=== PATIENT | male | born 1955 | race Caucasian/White ===

== ENCOUNTER 2018-05-14 10:34 | Emergency (ER) | payer MEDICARE, OTHER ==
[~2018-05-14] VITALS: Ht 165.1 cm; Wt 69.8 kg
[~2018-05-14 10:34] MED LIST: ALBU.083IS; ALBU3IS INH; ALBU90OI61 INH; AMLO10 PO; ASPI325; ASPI325EC; ASPI81CH PO; ATEN25; ATEN25 PO; ATOR40TA PO; BICA50 PO; CLOP75; CLOP75 PO; DICL75ER; DICL75ER PO; DIPH50 PO; DOXY100 PO; DULO60 PO; FELO5CR; FLUN25SP; FURO40 PO; GABA300 PO; LIDOPATCH1 EACH TOP; LISI20 PO; LORA10ER; LORA10ER PO; METF500C PO; METH5; METO25ER PO; MORP15ER PO; NITR.4SL; OXYACE5T; OXYACE5T PO; OXYC5 PO; PANT40 PO; PENVK500 PO; POTA8 PO; PREG100 PO; PROACE100 PO; RABE20; SIMV40; SIMV40 PO; SIMVASTATIN; TERA2; TERA5 PO; TERAZOSIN; TIOT18 INH
[2018-05-14] MEDS ORDERED: OXYC10TA19 (12:12)
[2018-05-14 12:53] LABS: PCO2 Arterial 44.2 mmHg (35-45); PO2 Arterial 79.9 mmHg (80-100)
[2018-05-14 12:55] LABS: BASOPHILS ABSOLUTE AUTO 0.05 K/mm3 (0.00-0.23); BASOPHILS PERCENT AUTO 1 % (0-2); EOSINOPHILS ABSOLUTE AUTO 0.22 K/mm3 (0.00-0.68); EOSINOPHILS PERCENT AUTO 2 % (0-6); Hematocrit 36.6 % (37.0-53.0); Hemoglobin 11.5 g/dL (13.5-17.5); IMMATURE GRAN ABSOLUTE AUTO 0.05 K/mm3 (0.00-0.10); IMMATURE GRAN PERCENT AUTO 1 % (0-1); LYMPHOCYTES ABSOLUTE AUTO 0.51 K/mm3 (0.84-5.20); LYMPHOCYTES PERCENT AUTO 5 % (21-46); MONOCYTES ABSOLUTE AUTO 0.54 K/mm3 (0.16-1.47); MONOCYTES PERCENT AUTO 5 % (4-13); Mean Corpuscular HGB 32.4 pg (26.0-34.0); Mean Corpuscular HGB Conc 31.4 g/dL (31.5-36.5); Mean Corpuscular Volume 103 fL (80-100); NEUTROPHILS ABSOLUTE AUTO 9.22 K/mm3 (1.96-9.15); NEUTROPHILS PERCENT AUTO 87 % (41-73); Platelet Count 461 K/mm3 (150-400); RDW Coefficient Variation 20.3 % (11.7-14.2); RDW Standard Deviation 76.7 fL (35.1-46.3); Red Blood Cell Count 3.55 M/mm3 (4.30-5.90); White Blood Cell Count 10.59 K/mm3 (4.00-11.30)
[2018-05-14 13:23] LABS: Alanine Aminotransfer (ALT/SGP 15 U/L (12-78); Albumin, Blood 3.2 g/dL (3.4-5.0); Albumin/Globulin Ratio 0.8 (0.8-1.8); Alk Phos 102 U/L (50-136); Anion Gap 6 mmol/L (6-16); Aspartate Aminotrans (AST/SGOT 14 U/L (12-37); Bilirubin, Total 0.3 mg/dL (0.1-1.0); Blood Urea Nitrogen 10 mg/dL (8-24); Bun/Creatinine Ratio 18.7 (12.0-20.0); CO2, Blood 27 mmol/L (21-32); Calcium, Blood 8.4 mg/dL (8.5-10.1); Chloride, Blood 105 mmol/L (98-108); Creatinine, Blood 0.54 mg/dL (0.60-1.20); Globulin, Blood 4.2 g/dL (2.2-4.0); Glomerular Filtration Rate >60 (60-); Glucose, Blood 131 mg/dL (70-99); Potassium, Blood 4.2 mmol/L (3.5-5.5); Sodium, Blood 138 mmol/L (136-145); Total Protein, Blood 7.4 g/dL (6.4-8.2)
[2018-05-14] MEDS ORDERED: Zithromax250 MG PO (14:24)
[2018-05-14] MEDS ORDERED: METPRE4DP PO (14:24)
[2018-05-14] MEDS ORDERED: MAGOXI400 PO (14:24)
== END 2018-05-14 14:30 | disposition home or self-care (01) ==
LOC: ER 10:34
PROVIDERS: Emergency Medicine
DX: J44.1 Chronic obstructive pulmonary disease with (acute) exacerbation (principal); J44.0 Chronic obstructive pulmonary disease with (acute) lower respiratory infection; J20.9 Acute bronchitis, unspecified; I25.10 Atherosclerotic heart disease of native coronary artery without angina pectoris; I25.2 Old myocardial infarction; F17.210 Nicotine dependence, cigarettes, uncomplicated; Z88.8 Allergy status to other drugs, medicaments and biological substances; Z88.1 Allergy status to other antibiotic agents; Z79.899 Other long term (current) drug therapy; Z79.01 Long term (current) use of anticoagulants; Z79.82 Long term (current) use of aspirin; Z79.51 Long term (current) use of inhaled steroids; Z79.84 Long term (current) use of oral hypoglycemic drugs
CPT/HCPCS: 36415; 36600; 71046; 80053; 82803; 83605; 85025; 94640; 94644; 99285-25; J2930; J3475; J7030

== ENCOUNTER 2018-10-17 18:07 | Inpatient (IN) | payer MEDICARE, OTHER ==
[~2018-10-17] VITALS: Ht 165.1 cm; Wt 178.0 kg
[~2018-10-17 18:07] MED LIST changes: +ALBU90OI INH; +DULERA 100 MCG/13 GM INH; +LISI5 PO; +MAGOXI400 PO; +METPRE4DP PO; +OXYC10TA19; +OXYC10TA19 PO; +PRED20 PO; +Prednisone20 MG PO; +TORSE20 PO; +Zithromax250 MG PO; +[UNRECOGNIZED DRUG - OTHER]
[2018-10-17 19:22] LABS: BASOPHILS ABSOLUTE AUTO 0.05 K/mm3 (0.00-0.23); BASOPHILS PERCENT AUTO 1 % (0-2); EOSINOPHILS ABSOLUTE AUTO 0.11 K/mm3 (0.00-0.68); EOSINOPHILS PERCENT AUTO 1 % (0-6); Hematocrit 42.9 % (37.0-53.0); Hemoglobin 13.5 g/dL (13.5-17.5); IMMATURE GRAN PERCENT AUTO 1 % (0-1); LYMPHOCYTES ABSOLUTE AUTO 0.88 K/mm3 (0.84-5.20); LYMPHOCYTES PERCENT AUTO 8 % (21-46); MONOCYTES ABSOLUTE AUTO 0.86 K/mm3 (0.16-1.47); MONOCYTES PERCENT AUTO 8 % (4-13); Mean Corpuscular HGB 30.5 pg (26.0-34.0); Mean Corpuscular HGB Conc 31.5 g/dL (31.5-36.5); Mean Corpuscular Volume 97 fL (80-100); NEUTROPHILS ABSOLUTE AUTO 8.64 K/mm3 (1.96-9.15); NEUTROPHILS PERCENT AUTO 81 % (41-73); NRBC Auto 0.9 /100 WBC (0.0-0.2); RDW Standard Deviation 77.7 fL (35.1-46.3); Red Blood Cell Count 4.42 M/mm3 (4.30-5.90); White Blood Cell Count 10.64 K/mm3 (4.00-11.30)
[2018-10-17 19:37] LABS: Alanine Aminotransfer (ALT/SGP 43 U/L (12-78); Albumin, Blood 2.5 g/dL (3.4-5.0); Albumin/Globulin Ratio 0.7 (0.8-1.8); Alk Phos 316 U/L (50-136); Anion Gap 6 mmol/L (6-16); Aspartate Aminotrans (AST/SGOT 167 U/L (12-37); Blood Urea Nitrogen 26 mg/dL (8-24); Bun/Creatinine Ratio 29.8 (12.0-20.0); CO2, Blood 26 mmol/L (21-32); Calcium, Blood 6.9 mg/dL (8.5-10.1); Chloride, Blood 100 mmol/L (98-108); Creatinine, Blood 0.87 mg/dL (0.60-1.20); Globulin, Blood 3.6 g/dL (2.2-4.0); Glomerular Filtration Rate >60 (60-); Glucose, Blood 105 mg/dL (70-99); Potassium, Blood 5.1 mmol/L (3.5-5.5); Sodium, Blood 132 mmol/L (136-145); Total Protein, Blood 6.1 g/dL (6.4-8.2)
[2018-10-17 19:54] LABS: Platelet Count 31 K/mm3 (150-400)
[2018-10-17 20:44] LABS: International Normalized Ratio 1.47
[2018-10-18 04:38] LABS: BASOPHILS ABSOLUTE AUTO 0.03 K/mm3 (0.00-0.23); BASOPHILS PERCENT AUTO 0 % (0-2); EOSINOPHILS ABSOLUTE AUTO 0.06 K/mm3 (0.00-0.68); EOSINOPHILS PERCENT AUTO 1 % (0-6); Hematocrit 37.7 % (37.0-53.0); IMMATURE GRAN PERCENT AUTO 1 % (0-1); LYMPHOCYTES ABSOLUTE AUTO 0.89 K/mm3 (0.84-5.20); LYMPHOCYTES PERCENT AUTO 9 % (21-46); MONOCYTES ABSOLUTE AUTO 0.83 K/mm3 (0.16-1.47); MONOCYTES PERCENT AUTO 9 % (4-13); Mean Corpuscular HGB 30.8 pg (26.0-34.0); Mean Corpuscular HGB Conc 31.8 g/dL (31.5-36.5); Mean Corpuscular Volume 97 fL (80-100); NEUTROPHILS PERCENT AUTO 80 % (41-73); NRBC ABSOLUTE 0.06 K/mm3 (0.00-0.02); NRBC Auto 0.6 /100 WBC (0.0-0.2); RDW Coefficient Variation 21.6 % (11.7-14.2); RDW Standard Deviation 75.7 fL (35.1-46.3); Red Blood Cell Count 3.89 M/mm3 (4.30-5.90); White Blood Cell Count 9.61 K/mm3 (4.00-11.30)
[2018-10-18 04:55] LABS: Magnesium, Blood 2.5 mg/dL (1.6-2.4)
[2018-10-18 05:03] LABS: Platelet Count 28 K/mm3 (150-400)
[2018-10-18 05:12] LABS: Anion Gap 7 mmol/L (6-16); Blood Urea Nitrogen 26 mg/dL (8-24); Bun/Creatinine Ratio 29.4 (12.0-20.0); CO2, Blood 24 mmol/L (21-32); Calcium, Blood 6.3 mg/dL (8.5-10.1); Chloride, Blood 102 mmol/L (98-108); Creatinine, Blood 0.88 mg/dL (0.60-1.20); Glomerular Filtration Rate >60 (60-); Glucose, Blood 117 mg/dL (70-99); Potassium, Blood 5.2 mmol/L (3.5-5.5); Sodium, Blood 133 mmol/L (136-145)
--- NOTE | 2018-10-18 05:55 | NUR ---
SHIFT SUMMARY PT WAS A NEW ADMIT DURING THE NIGHT, ARRIVING ON THE FLOOR AT 0112. HE WAS ADMITTED FOR ACUTE CHF AFTER REPORTING BLE SWELLING, INCREASING WEAKNESS AND SOB AT HOME. THE PT IS NOTICEABLY DYSPNEIC WITH ANY MOVEMENT OR EXERTION, AND WAS GIVEN A BREATHING TREATMENT DURING THE NIGHT BY RT. HE IS SATTING IN THE MID 90S ON 2L OF O2. HE ALSO RAN TACHY IN THE 110S THROUGH THE NIGHT. ALL OTHER VITALS STABLE. PT REPORTED PAIN IN HIS LEGS AND ABDOMEN AFTER RECEIVING OXYCONTIN IN THE ER. THE HOSPITALST DR MARMOLEJO WAS CONSULTED, AND OXYCONTIN AND OXYCODONE ORDERED, BUT THE PT FELL ASLEEP BEFORE MEDS COULD BE GIVEN. PT'S LEGS ARE SWOLLEN 3+ PITTING EDEMA WITH SOME AREAS OF WEEPING ON HIS SHINS. NO OTHER ACUTE CHANGES IN PT CONDITION NOTED SINCE ADMISSION. WILL CONTINUE TO MONITOR AND TREAT PER EMAR.
--- NOTE | 2018-10-18 16:52 | NUR ---
SHIFT SUMMARY- PT C/O PAIN IN HIS BACK/ABD/PELVIS. MEDS GIVEN PER EMAR. PT DENIES SOB. RESP E/U ON RA. LUNGS COARSE/WHEEZING T/O. PT DENIES N/V. 3+ WEEPING EDEMA BLE. SINUS TACH WITH BBB AT 119 PER PCU MANAGER OF CUSTOMER BILLING. BEDREST AT THIS TIME. TURNS Q2H. NO OTHER SIGNIFICANT CHANGES THIS SHIFT.
--- NOTE | 2018-10-18 17:49 | NUR ---
NOTIFIED DR. AZUL PT REQUEST TO BE DNR. DR. AZUL SAID TO PUT IN DNR CODE STATUS ORDER. NO OTHER NEW ORDERS AT THIS TIME.
--- NOTE | 2018-10-18 18:28 | NUR ---
DNR CONFIRMED WITH REMINGTON SHAIKH RN, DNR BRACELET ON LEFT WRIST.
[2018-10-19 05:26] LABS: BASOPHILS ABSOLUTE AUTO 0.05 K/mm3 (0.00-0.23); BASOPHILS PERCENT AUTO 1 % (0-2); EOSINOPHILS ABSOLUTE AUTO 0.08 K/mm3 (0.00-0.68); EOSINOPHILS PERCENT AUTO 1 % (0-6); Hematocrit 37.9 % (37.0-53.0); Hemoglobin 12.1 g/dL (13.5-17.5); IMMATURE GRAN ABSOLUTE AUTO 0.08 K/mm3 (0.00-0.10); IMMATURE GRAN PERCENT AUTO 1 % (0-1); LYMPHOCYTES ABSOLUTE AUTO 0.93 K/mm3 (0.84-5.20); LYMPHOCYTES PERCENT AUTO 10 % (21-46); MONOCYTES ABSOLUTE AUTO 0.91 K/mm3 (0.16-1.47); MONOCYTES PERCENT AUTO 10 % (4-13); Mean Corpuscular HGB 30.8 pg (26.0-34.0); Mean Corpuscular HGB Conc 31.9 g/dL (31.5-36.5); Mean Corpuscular Volume 96 fL (80-100); NEUTROPHILS ABSOLUTE AUTO 6.85 K/mm3 (1.96-9.15); NEUTROPHILS PERCENT AUTO 77 % (41-73); NRBC ABSOLUTE 0.05 K/mm3 (0.00-0.02); NRBC Auto 0.6 /100 WBC (0.0-0.2); RDW Coefficient Variation 21.5 % (11.7-14.2); RDW Standard Deviation 75.2 fL (35.1-46.3); Red Blood Cell Count 3.93 M/mm3 (4.30-5.90)
--- NOTE | 2018-10-19 05:35 | NUR ---
NOC SHIFT SUMMARY PT HAS BEEN PLEASANT AND COOPERATIVE WITH CARE. UPON SHIFT CHANGE PT WAS FOUND TO HAVE NEW ONSET SWELLING IN PENIS AND SCROTUM. DAY NURSE AND PT BOTH SAY IT WAS NEW ONSET AND OCCURRED ONLY IN THE PAST FEW MINUTES BEFORE SHIFT CHANGE. PT STILL ABLE TO VOID AND DENIES PAIN. CALLED TO DR MARMOLEJO [phone], HE WOULD LIKE THIS TO BE REPORTED TO THE DAY NURSE. AT 0155 THIS MORDNING PT COMPLAINED OF PAIN IN CHEST DULL 6/10. VITALS WERE TAKEN AND CHARGE NURSE CONSULTED. WHILE FENCE RIDER AND I WHERE TALKING WITH PT HE RELATED THAT PAIN HAD BEGUN TO IMPROVE. RECHECKED VITALS 0301 WHICH WERE IMPROVED WELL. PT STATED AT THAT TIME PAIN WAS MUCH IMPROVED. NO LONGER HAVING ANY PAIN OR DISCOMFORT. PT AAOX4 RESP EVEN AND UNLABORED. APPEARS IN NO ACUTE DISTRESS. WILL CONTINUE TO MONITOR.
[2018-10-19 05:53] LABS: Anion Gap 6 mmol/L (6-16); Blood Urea Nitrogen 28 mg/dL (8-24); CO2, Blood 24 mmol/L (21-32); Calcium, Blood 6.3 mg/dL (8.5-10.1); Chloride, Blood 103 mmol/L (98-108); Creatinine, Blood 0.85 mg/dL (0.60-1.20); Glomerular Filtration Rate >60 (60-); Glucose, Blood 112 mg/dL (70-99); Potassium, Blood 4.8 mmol/L (3.5-5.5); Sodium, Blood 133 mmol/L (136-145)
[2018-10-19 06:33] LABS: Platelet Count 26 K/mm3 (150-400)
--- NOTE | 2018-10-19 11:07 | NUR ---
pt out of room checked back. left AD information. will retrun and attemtp polst and AD.
--- NOTE | 2018-10-19 17:24 | NUR ---
Met with patient this morning after he returned. Pt relayed his stressors and needs for his care. He states he is owrking with his oncologist on a plan but he states his doctor has suggested palliative treaments. He may be able to have a palliative treatment based on a study his doctor is looking at. pt states his PSA is expremly high and he is not optimistic. Review of his symptoms he is well controlled. His biggest issue is mobility. He is planning on having a hospital bed in the living room and using his motorized chair. His greatest stress is fainancial and what his passing will do to his . We reviewed levels of care and He brought up hospice. Review with patient what they offer and can do for him and his . advised that if he seeks palliative treatment he can still do have that option but it may not be covered under the hospice bundle. Review of supportive financial care for his . pt does not have a will or a power of regulatory attorney. gave him a copy and offered [place]. He is very interested in hospice transition and his is coming to visit today. Gave hims some pointers on speaking with his on a plan. He is a non service connected who [facility]. He has a funneral benefit. He states he recently had a life celebration and may have another one it was so much fun! Gave him information on creamation and cost and supportive strategies for his wifes financial needs.
--- NOTE | 2018-10-19 19:05 | NUR ---
SHIFT SUMMARY PATIENT PLEASANT. REPORTS SOME MILD STOMACH UPSET. PARVEEN DOMINGUEZ CONCERNS FRM PATIENT. WILL ASSESS FOR CHANGES.
--- NOTE | 2018-10-19 23:08 | NUR ---
PT WAS COMPLAINING OF SOME STOMACH PAIN AT TIME OF SHIFT ASSESMENT. HE HAD RELATED THAT IT STARTED AFTER HE ATE AT AROUND [address] JANSEN AT [phone] AND VERBAL ORDER OMEPRAZOLE AND MAALOX. AFTER TAKING PT STATES PAIN/DISCOMFORT HAS RESOLVED. PT STATES FEELING MUCH BETTER. WILL CONTINUE TO MONITOR.
[2018-10-20 05:09] LABS: BASOPHILS ABSOLUTE AUTO 0.05 K/mm3 (0.00-0.23); BASOPHILS PERCENT AUTO 1 % (0-2); EOSINOPHILS ABSOLUTE AUTO 0.12 K/mm3 (0.00-0.68); EOSINOPHILS PERCENT AUTO 1 % (0-6); Hematocrit 38.3 % (37.0-53.0); Hemoglobin 12.1 g/dL (13.5-17.5); IMMATURE GRAN ABSOLUTE AUTO 0.06 K/mm3 (0.00-0.10); IMMATURE GRAN PERCENT AUTO 1 % (0-1); LYMPHOCYTES PERCENT AUTO 13 % (21-46); MONOCYTES ABSOLUTE AUTO 0.85 K/mm3 (0.16-1.47); MONOCYTES PERCENT AUTO 10 % (4-13); Mean Corpuscular HGB 30.4 pg (26.0-34.0); Mean Corpuscular HGB Conc 31.6 g/dL (31.5-36.5); Mean Corpuscular Volume 96 fL (80-100); NEUTROPHILS ABSOLUTE AUTO 6.44 K/mm3 (1.96-9.15); NEUTROPHILS PERCENT AUTO 75 % (41-73); NRBC ABSOLUTE 0.05 K/mm3 (0.00-0.02); NRBC Auto 0.6 /100 WBC (0.0-0.2); RDW Coefficient Variation 21.5 % (11.7-14.2); RDW Standard Deviation 75.2 fL (35.1-46.3); Red Blood Cell Count 3.98 M/mm3 (4.30-5.90); White Blood Cell Count 8.62 K/mm3 (4.00-11.30)
[2018-10-20 05:20] LABS: Platelet Count 25 K/mm3 (150-400)
[2018-10-20 05:27] LABS: Anion Gap 7 mmol/L (6-16); Blood Urea Nitrogen 29 mg/dL (8-24); Bun/Creatinine Ratio 34.6 (12.0-20.0); CO2, Blood 24 mmol/L (21-32); Calcium, Blood 6.3 mg/dL (8.5-10.1); Chloride, Blood 103 mmol/L (98-108); Creatinine, Blood 0.84 mg/dL (0.60-1.20); Glomerular Filtration Rate >60 (60-); Glucose, Blood 111 mg/dL (70-99); Potassium, Blood 5.1 mmol/L (3.5-5.5); Sodium, Blood 134 mmol/L (136-145)
--- NOTE | 2018-10-20 06:02 | NUR ---
NOC SHIFT SUMMARY PT PLEASANT AND COOPERATIVE WITH CARE THIS NIGHT. HE HAD SOME EPIGASTRIC DISCOMFORT EARLY IN THE EVENING. OBTAINED ORDER FOR OMEPRAZOLE AND MAALOX. AFTER TAKING PT STATES DISCOMFORT RESOLVED. TREATED HIP PAIN WITH OPIATES THROUGH THE NIGHT TO GOOD EFFECT. PT STATES HE SLEPT BETTER THIS NIGHT THAN IN "A LONG TIME". CURRENTLY SLEEPING. RESP ARE EVEN AND UNLABORED. APPEARS IN NO ACUTE DISTRESS. RECIEVED CALL FROM LAB FOR LOW PLATELETS AT 25. DISCUSSED WITH ACQUISITIONS ASSISTANT. ATTENDING PHYCICIAN IS AWARE OF LOW PLATELETS AND TREND. WILL REPORT TO ONCOMING NURSE.
--- NOTE | 2018-10-20 14:04 | NUR ---
PLAN TO GO HOME WITH HOSPICE FOLLOWING TOMORROW. PAIN WELL MANAGED. NON-AMBULATORY. USES W/C INDEPENDENTLY BUT FULL/MAX ASSIST TO TRANSFER. IN GOOD SPIRITS AND STATES, "I AM READY TO GO" PLEASANT/COOP WITH ALL CARE.
--- NOTE | 2018-10-20 17:14 | NUR ---
Attempted to visit pt twice today to provide blank forms requested/discussed w/previous palliative care RN, the durable power of business attorney and [place] will. Pt was out of his room both times. Staff report he and his are outside for a smoke. We will try again tomorrow and continue advanced care planning conversation started yesterday.
--- NOTE | 2018-10-20 17:27 | NUR ---
NO ACUTE CHANGES T/O DAY. HAS HAD VISITORS AND IN PLEASANT SPIRITS. DENIES PAIN AT THIS TIME.
[2018-10-21 05:26] LABS: BASOPHILS ABSOLUTE AUTO 0.04 K/mm3 (0.00-0.23); BASOPHILS PERCENT AUTO 0 % (0-2); EOSINOPHILS PERCENT AUTO 1 % (0-6); Hematocrit 39.2 % (37.0-53.0); Hemoglobin 12.6 g/dL (13.5-17.5); IMMATURE GRAN ABSOLUTE AUTO 0.09 K/mm3 (0.00-0.10); IMMATURE GRAN PERCENT AUTO 1 % (0-1); LYMPHOCYTES PERCENT AUTO 9 % (21-46); MONOCYTES ABSOLUTE AUTO 0.85 K/mm3 (0.16-1.47); MONOCYTES PERCENT AUTO 8 % (4-13); Mean Corpuscular HGB 31.2 pg (26.0-34.0); Mean Corpuscular HGB Conc 32.1 g/dL (31.5-36.5); Mean Corpuscular Volume 97 fL (80-100); NEUTROPHILS ABSOLUTE AUTO 8.46 K/mm3 (1.96-9.15); NEUTROPHILS PERCENT AUTO 81 % (41-73); NRBC ABSOLUTE 0.08 K/mm3 (0.00-0.02); NRBC Auto 0.8 /100 WBC (0.0-0.2); RDW Coefficient Variation 21.6 % (11.7-14.2); RDW Standard Deviation 76.4 fL (35.1-46.3); Red Blood Cell Count 4.04 M/mm3 (4.30-5.90); White Blood Cell Count 10.44 K/mm3 (4.00-11.30)
[2018-10-21 05:42] LABS: Platelet Count 26 K/mm3 (150-400)
[2018-10-21 05:52] LABS: Anion Gap 6 mmol/L (6-16); Blood Urea Nitrogen 30 mg/dL (8-24); Bun/Creatinine Ratio 31.3 (12.0-20.0); CO2, Blood 25 mmol/L (21-32); Calcium, Blood 6.4 mg/dL (8.5-10.1); Chloride, Blood 100 mmol/L (98-108); Creatinine, Blood 0.96 mg/dL (0.60-1.20); Glomerular Filtration Rate >60 (60-); Glucose, Blood 140 mg/dL (70-99); Potassium, Blood 5.8 mmol/L (3.5-5.5); Sodium, Blood 131 mmol/L (136-145)
[2018-10-21] MEDS ORDERED: ALBU2.5V5 INH (15:19)
--- NOTE | 2018-10-21 15:23 | NUR ---
DISCHARGE MEDICATION RECONCILIATION: PER DR. AZUL TELEPHONE ORDER CONTINUE FOLLOWING HOME MEDS- 1) ALBUTEROL 90 MCG INH 1-2 ACT INH Q6H PRN SOB 2) ASPIRIN CHEWABLE 81 MG PO DAILY 3) ATENOLOL 25 MG PO DAILY 4) DULERA 100 MCG/5 MCG 2 ACT INH BID STOP THE FOLLOWING HOME MEDS- 1) ATORVASTATIN 40 MG PO DAILY 2) LISINOPRIL 5 MG PO DAILY 3) METFORMIN 1,000 MG PO BID 4) OXYCODONE 20 MG PO Q4H PRN SEVERE PAIN 5) PREDNISONE 20 MG PO DAILY 6) TORSEMIDE 20 MG PO DAILY
[2018-10-21] MEDS ORDERED: Lasix20 MG PO (15:28)
[2018-10-21] MEDS ORDERED: HYDPAM25 PO (15:29)
[2018-10-21] MEDS ORDERED: OMEPRAZOLE MAGN20 MG PO (15:30)
[2018-10-21] MEDS ORDERED: OXYC30ER PO (15:30)
[2018-10-21] MEDS ORDERED: OXYC5 PO (15:31)
[2018-10-21] MEDS ORDERED: GAVILAX17 GM PO (15:32)
--- NOTE | 2018-10-21 17:23 | NUR ---
PT DISCHARGED AROUND 1625 WITH INSRUCTIONS AND HARD COPIES FOR OXYCODONE AND OXYCONTIN. NO IV. TOLERATING FOOD AND FLUIDS, UP IN W/C ALL DAY OUTSIDE TO SMOKE. PAIN CONTROLLED WITH OXYCONTIN GIVEN THIS AM. SENT WITH ALL BELONGINGS AND PT'S OWN ELECTRIC WHEEL CHAIR. FAMILY TO DRIVE PT HOME.
== END 2018-10-21 15:54 | disposition hospice, home (50) | DRG 292 ==
LOC: ER 18:07 → MEDS 22:58 → ER 10-18 00:48 → MEDS 10-18 00:48 → ENPENDDIS 10-21 12:44 → MEDS 10-21 15:54
PROVIDERS: Emergency Medicine; Hospitalist; Physician Assistant; ADMIT Hospitalist
DX: I50.23 Acute on chronic systolic (congestive) heart failure (principal); J44.1 Chronic obstructive pulmonary disease with (acute) exacerbation; C61 Malignant neoplasm of prostate; E11.9 Type 2 diabetes mellitus without complications; D69.6 Thrombocytopenia, unspecified; I25.10 Atherosclerotic heart disease of native coronary artery without angina pectoris; Z51.5 Encounter for palliative care; F17.210 Nicotine dependence, cigarettes, uncomplicated; E78.5 Hyperlipidemia, unspecified; Z95.1 Presence of aortocoronary bypass graft; Z99.81 Dependence on supplemental oxygen; Z88.8 Allergy status to other drugs, medicaments and biological substances; Z79.84 Long term (current) use of oral hypoglycemic drugs; Z79.82 Long term (current) use of aspirin; Z79.899 Other long term (current) drug therapy; I25.2 Old myocardial infarction
CPT/HCPCS: 36415; 51702; 70450; 71046; 80048; 80053; 83735; 83880; 84484; 85025; 85055; 85610; 85730; 93005; 93010; 94640; 94760; 96374-59; 99285-25; J1940; Q0177

== ENCOUNTER 2018-10-24 04:08 | Emergency (ER) | payer MEDICARE, OTHER ==
[~2018-10-24] VITALS: Ht 162.6 cm; Wt 86.2 kg
[~2018-10-24 04:08] MED LIST changes: +ALBU2.5V5 INH; +GAVILAX17 GM PO; +HYDPAM25 PO; +Lasix20 MG PO; +OMEPRAZOLE MAGN20 MG PO; +OXYC30ER PO
--- NOTE | 2018-10-24 13:17 | NUR ---
Initial Visit: Palliative Care Consult for symptom managment. Spoke with Pt's nurse Toni and he reports the Pt is on hospice and came into ED for symptom management. Pt is scheduled for transport to [facility] at any moment. Pt is A&Ox4 and reports 10/10 pain and 4/7 dyspnea. Pt's respirations are 24/min and labored. He also reports 4/7 anxiety. Pt reports he is of [employer] jatinder. Pt's transport has arrived shortly into visit. Spoke with Dr Wilks requesting Pt receive Ativan for anxiety and dyspnea. Dr Wilks is agreeable and will place the order. No other concerns reported at this time.
== END 2018-10-24 15:05 | disposition home or self-care (01) ==
LOC: ER 04:08
DX: R06.2 Wheezing (principal); Z51.5 Encounter for palliative care; Z88.1 Allergy status to other antibiotic agents; Z88.8 Allergy status to other drugs, medicaments and biological substances; Z79.899 Other long term (current) drug therapy; Z79.82 Long term (current) use of aspirin; I25.2 Old myocardial infarction; F17.210 Nicotine dependence, cigarettes, uncomplicated; F17.290 Nicotine dependence, other tobacco product, uncomplicated
CPT/HCPCS: 96374; 99285-25; J1940